=== PATIENT | female | born 1965 ===

== ENCOUNTER 2020-07-02 05:13 | Day surgery (SDC) | payer OTHER ==
[~2020-07-02 05:13] MED LIST: DURACHOL 3,7751 EACH PO; GLUMETZA500 MG PO; NORVASC10 MG PO; TENORMIN100 M1 PO
[2020-07-02] MEDS ORDERED: ULTRAM50 MG PO (09:23)
== END 2020-07-02 12:35 | disposition home or self-care (01) ==
LOC: CIR.AMB 05:13
PROVIDERS: ATTEND Surgery
DX: D35.1 Benign neoplasm of parathyroid gland (principal); Z20.828 Contact with and (suspected) exposure to other viral communicable diseases